=== PATIENT | female | born 1985 ===

== ENCOUNTER 2017-02-10 20:09 | Emergency (ER) | payer SELFPAY ==
[~2017-02-10] VITALS: Ht 157.5 cm; Wt 63.5 kg
[2017-02-10] MEDS ORDERED: LORA-114 PO (20:26)
[2017-02-10] MEDS ORDERED: KETO10DR13 OP (20:28)
[2017-02-10] MEDS ORDERED: FLUORESCEIN SODIUM 1 MG STRIP OP ONE (21:45)
[2017-02-10] MEDS ORDERED: TETRACAINE HCL 0.5% OPHT DROP 2 ML BOTTLE OP ONE (21:45)
[2017-02-10] MEDS ORDERED: FLUORESCEIN SODIUM 1 MG STRIP ONE (21:53)
[2017-02-10] MEDS ORDERED: TETRACAINE HCL 0.5% OPHT DROP 2 ML BOTTLE ONE (21:53)
[2017-02-10] MEDS ORDERED: predniSONE 20 MG TABLET PO ONE (22:00)
[2017-02-10] MEDS ORDERED: predniSONE 50 MG TABLET ONE (22:18)
[2017-02-10] MEDS ORDERED: predniSONE 10 MG TABLET ONE (22:18)
[2017-02-11] MEDS ORDERED: AMOXICILLIN-CLAVUL 875-125MG TABLET PO ONE
--- NOTE | 2017-02-11 00:12 | NUR ---
Patient discharged to home in stable conditon. Written and verbal after care instructions given. Patient verbalizes understanding of instructions.
[2017-02-11 00:13] VITALS: BP 115/65
[2017-02-11] MEDS ORDERED: AMOXICILLIN-CLAVUL 875-125MG TABLET ONE (00:17)
== END 2017-02-11 00:12 | disposition home or self-care (01) ==
LOC: ER 20:15
DX: S02.31XA Fracture of orbital floor, right side, initial encounter for closed fracture (principal); H10.11 Acute atopic conjunctivitis, right eye; J45.909 Unspecified asthma, uncomplicated; X58.XXXA Exposure to other specified factors, initial encounter; Y93.H2 Activity, gardening and landscaping; Y99.8 Other external cause status; Y92.89 Other specified places as the place of occurrence of the external cause
CPT/HCPCS: 70480; 99284; A4663; J7512 ×2